=== PATIENT | male | born 1945 | race Caucasian/White ===

== ENCOUNTER 2019-10-29 15:34 | Emergency (ER) | payer BC, MEDICARE ==
[~2019-10-29] VITALS: Ht 157.5 cm; Wt 61.2 kg
[2019-10-29] MEDS ORDERED: TETANUS/DIPHTHERIA TOX ADULT 0.5 ML SYR IM STA (15:59)
[2019-10-29] MEDS ORDERED: TETANUS/DIPHTHERIA TOX ADULT 0.5 ML SYR ONE (16:12)
--- NOTE | 2019-10-29 16:26 | Diagnostic Imaging Report ---
X-ray right fifth digit History: Right by Comparison: None Findings: No fracture, subluxation, significant soft tissue swelling, air in the soft tissues, radiopaque foreign body. Impression: As above. Signed by: Zachary Berman MD on 10/29/2019 4:22 PM
--- NOTE | 2019-10-29 16:30 | Emergency Department Note ---
History of Present Illnes History of Present Illness Chief Complaint: rgt 5th digit bite(most likely a rat) kyle while sleeping History of Present Illness This is a 74 year old male. was doing well prior to this Historian: Patient Arrival Mode: Car History limited by: condition of the patient Caddy Packer Required: No Onset (how long ago): day(s) (2) Location: rgt 5th digit Quality: sharp Radiation: Reports non-radiation Severity: moderate Onset quality: sudden Duration (how long): day(s) (2) Timing of current episode: constant Progression: unchanged Chronicity: new Context: Reports trauma/injury Relieving factors: rest Exacerbating factors: movement Associated symptoms: Reports denies other symptoms Treatments prior to arrival: none Past Medical/Family History Physician Review I have reviewed the patient's past medical and family history. Any updates have been documented here. Past Medical History Recent Fever: No Clinical Suspicion of Infectio: No New/Unexplained Change in Ment: No Past Medical History: Anxiety, Depression Past Surgical History: None Social History Smoking Cessation: Never Smoker Alcohol Use: None Any Illegal Drug Use: No Other Any Pre-Existing Lines (PICC,: No Review of Systems Review of Systems Constitutional: Reports no symptoms EENTM: Reports no symptoms Cardiovascular: Reports no symptoms Respiratory: Reports no symptoms Gastrointestinal: Reports no symptoms Genitourinary: Reports no symptoms Musculoskeletal: Reports no symptoms Integumentary: Reports as per HPI Neurological: Reports no symptoms Psychological: Reports no symptoms Endocrine: Reports no symptoms Hematological/Lymphatic: Reports no symptoms Review of other systems: All other systems negative Physical Exam Related Data Allergies: Coded Allergies: No Known Drug Allergies (Verified Allergy, Unknown, 08/20/08) Triage Vital Signs Vital Signs Date Time Temp Pulse Resp B/P (MAP) Pulse Ox O2 Delivery O2 Flow Rate FiO2 10/29/19 16:00 98.0 77 16 158/85 97 Room Air Vital signs reviewed: Yes Physical Exam CONSTITUTIONAL Constitutional: Present well-developed, Present well-nourished HENT HENT: Present normocephalic, Present atraumatic, Present oropharynx clear/moist, Present nose normal HENT L/R: Present left ext ear normal, Present right ext ear normal EYES Eyes: Reports PERRL, Reports conjunctivae normal NECK Neck: Present ROM normal PULMONARY Pulmonary: Present effort normal, Present breath sounds normal CARDIOVASCULAR Cardiovascular: Present regular rhythm, Present heart sounds normal, Present capillary refill normal, Present normal rate GASTROINTESTINAL Abdominal: Present soft, Present nontender, Present bowel sounds normal GENITOURINARY Genitourinary: Present exam deferred SKIN Skin: Present warm, Present dry, Present erythema (surrounding healing (2)bite johns) MUSCULOSKELETAL Musculoskeletal: Present ROM normal NEUROLOGICAL Neurological: Present alert, Present oriented x 3, Present no gross motor or sensory deficits PSYCHOLOGICAL Psychological: Present mood/affect normal, Present judgement normal Results Imaging Imaging results reviewed: Yes Impressions rgt 5th digit= negative Assessment & Plan Medical Decision Making MDM bite kyle Assessment & Plan Final Impression: (1) Bite by animal Depart Disposition: HOME, SELF-CARE Last Vital Signs Date Time Temp Pulse Resp B/P (MAP) Pulse Ox O2 Delivery O2 Flow Rate FiO2 10/29/19 16:00 98.0 77 16 158/85 97 Room Air Home Meds Active Scripts Amoxicillin/Potassium Clav (AUGMENTIN 875-125 TABLET) 1 Each Tablet, 875 MG PO Q12H, #28 TAB Prov:JUSTYN TUCKER 10/29/19 Medications in the ED Tetanus/ Diphtheria Toxoids 0.5 ml ONCE STAT IM Last administered on 10/29/19at 16:05; Admin Dose 0.5 ML; Start 10/29/19 at 15:59; Stop 10/29/19 at 16:01; Status DC Tetanus/ Diphtheria Toxoids 0.5 ml STK-MED ONCE .ROUTE ; Start 10/29/19 at 16:12; Stop 10/29/19 at 16:09; Status DC JUSTYN TUCKER Oct 29, 2019 16:30
[2019-10-29] MEDS ORDERED: AUGMENTIN 875-1 EACH PO (16:31)
--- NOTE | 2019-10-29 16:44 | NUR ---
IN ROOM WITH DR. TUCKER REVIEWING DISCHARGE SUMMARY. PROVIDED INFORMATION FOR WHERE PATIENT CAN GO FOR RABIES TESTING. PATIENT STATES "I'M NOT GONNA GO GET ANY RABIES VACCINES"
--- OUTSIDE RECORDS SUMMARY | 2019-10-29 17:10 | XMS REPORT | Continuity of Care Document ---
Author Author [facility] Organization [facility] Address [address] [place] [address] Phone Unavailable Care Team Providers Care Physician General Practice Name Role Phone Ivette TUCKER Attphys Unavailable Problems This patient has no known problems. Allergies, Adverse Reactions, Alerts This patient has no known allergies or adverse reactions. Medications This patient has no known medications. Procedures This patient has no known procedures. Results Test Description Test Time Test Comments Results Result Comments Source FINGER RT - HOPD 2019-10-29 16:21:00 [place] [id number] Patient Name: ADRIEN VENEGAS MR #: [id number] : 1945 Age/Sex: 74/M Req #: [id number] Adm Physician: Ordered by: JUSTYN TUCKER Report #: [id number] Location: [facility] Room/Bed: Procedure: [id number] HOPD/FINGER RT - [facility] Exam Date: 10/29/19 Exam Time: 1616 REPORT STATUS: Signed X-ray right fifth digit History: Right by Comparison: None Findings: No fracture, subluxation, significant soft tissue swelling, air in the soft tissues, radiopaque foreign body. Impression: As above. Signed by: Nuria Haiedr MD on 10/29/2019 4:22 PM Dictated By: NURIA HAIDER MD 21 Transcribed By: CEDRIC on 10/29/191621 COPY TO: JUSTYN TUCKER
== END 2019-10-29 17:25 | disposition home or self-care (01) ==
LOC: FSED 16:02
DX: S61.256A Open bite of right little finger without damage to nail, initial encounter (principal); W64.XXXA Exposure to other animate mechanical forces, initial encounter; Y92.008 Other place in unspecified non-institutional (private) residence as the place of occurrence of the external cause; F41.9 Anxiety disorder, unspecified; F32.9 Major depressive disorder, single episode, unspecified
CPT/HCPCS: 90714; 99283

== ENCOUNTER → 2022-04-14 | Day surgery (SDC) | payer MEDICARE ==
[~2022-04-14] MED LIST: ASPIRIN81 MG PO; AUGMENTIN 875-1 EACH PO; GLIMEPIRIDE2 MG PO; LIDOCAINE HCL 2% LOCAL INJ 5 ML SDV VIAL INJ ONE; METFORMIN HCL500 MG PO; PHENYLEPHRINE HCL 1% 10 MG/ML VIAL ONE; POVIDONE IODINE 0.05% 0.05 % ML PO ONE; PROPOFOL IV EMULSION 10 MG/ML 20 ML VIAL ONE; SIMETHICONE 40 MG/0.6 ML BTL ONE
[2022-04-14 12:00] VITALS: BP 130/73
== END | disposition home or self-care (01) ==
LOC: OR 08:09
PROVIDERS: ATTEND Internal Medicine Gastroenterology
DX: K22.2 Esophageal obstruction (principal); D12.2 Benign neoplasm of ascending colon; D12.4 Benign neoplasm of descending colon; D12.5 Benign neoplasm of sigmoid colon; K29.50 Unspecified chronic gastritis without bleeding; K22.10 Ulcer of esophagus without bleeding; K44.9 Diaphragmatic hernia without obstruction or gangrene; K59.09 Other constipation; K57.30 Diverticulosis of large intestine without perforation or abscess without bleeding; K64.8 Other hemorrhoids; Z71.3 Dietary counseling and surveillance; I10 Essential (primary) hypertension; Z71.89 Other specified counseling; E78.00 Pure hypercholesterolemia, unspecified; Z01.810 Encounter for preprocedural cardiovascular examination; Z79.82 Long term (current) use of aspirin; Z79.84 Long term (current) use of oral hypoglycemic drugs
CPT/HCPCS: 36415; 43239; 43450; 45385; 82948; 83630; 83993; 87045; 87177; 87324; 87328; 87449; 88305; 88342; 93005; C9113; J2001; J2370; J2704; 45378; 88304; 88312